=== PATIENT | male | born 2000 | race Caucasian/White ===

== ENCOUNTER 2024-08-19 10:12 | Outpatient (AMB) | payer OTHER, SELFPAY ==
--- NOTE | 2024-08-19 10:58 | MHC.OFFWIV ---
Intake Vital Signs 08/19/24 10:59 Height 6 ft 1 in Weight 203 lb BMI 26.8 BP 120/80 Blood Pressure Location Rt brachial Position Sitting Pulse 67 Pulse Source Pulse Oximeter Temp 98.2 F Temp Source Oral Pulse Oximetry (%) 98 Oxygen Delivery Method Room Air Intake Visit Reasons: [employer] Sore throat Intake Note: Patient here to be checked for strep throat as his girlfriend has it. pt denies any symptoms. Patient Tobacco Use Status: Never used Tobacco Allergies codeine Adverse Reaction (Intermediate, Verified 08/19/24 11:00) vomiting From GARAMYCIN Allergy (Unknown, Uncoded 08/19/24 11:00) HIVES Do you need a note to return to daycare/school/sports/work: No HPI [employer] Sore throat HPI Details This note is constructed using voice recognition software. While every effort has been made to ensure accuracy, costume director errors may have been included. The patient is a 24 year old male who presents to the clinic today with request to be tested for strep throat after exposure. He reports that his girlfriend has strep throat, and she is 4 days into illness, but just prior to them noticing that she had strep throat, they has been kissing. He denies any symptoms including sore throat, fever, chills, lymphadenopathy. He reports that he had strep throat quite a bit growing up, and has tested positive in the past as a child for it even without symptoms. [facility] Social History Patient Tobacco Use Status: Never used Tobacco Review of Systems Const All systems reviewed & are unremarkable except as noted in HPI and below Physical Exam Vital Signs: Last Vital Signs Temp 98.2 F 08/19/24 10:59 Pulse 67 08/19/24 10:59 BP 120/80 08/19/24 10:59 Pulse Ox 98 08/19/24 10:59 Oxygen Delivery Method Room Air 08/19/24 10:59 BMI result Body Mass Index 26.8 Const General: cooperative, healthy appearing, comfortable, no acute distress and well developed Orientation/consciousness: patient oriented x3 Limitations: no limitations HEENT Head: Yes normal to inspection Ears: hearing grossly normal bilaterally General nose exam: Normal external nose present Face and sinus: Yes normal facial exam Throat: Yes posterior oropharynx abnormal (erythema mild) Eyes General: appearance normal, both eyes and all related structures Neck Neck: Yes normal visual inspection and Yes full ROM Resp Effort & Inspection: normal respiratory effort and able to speak in complete sentences Auscultation: clear to auscultation bilaterally Cardio Rate: regular rate Rhythm: regular rhythm Heart sounds: normal S1 and S2 Skin General skin exam: no rashes or lesions noted Neuro General: patient oriented x3 Assessment & Plan Assessment & Plan (1) Exposure to strep throat: Code(s): Z20.818 - Contact with and (suspected) exposure to other bacterial communicable diseases Plan: Reassuring physical examination today. In office rapid strep negative. Throat culture obtained due to higher sensitivity and specificity of testing. Advised patient to follow up with new onset of symptoms this bite negative testing. Advised patient that should his culture come back positive we will be sending antibiotics to his requested pharmacy for treatment, advised patient that should he require antibiotics, he should take them until completed and not to stop if feeling better, unless the patient has side effects. Plan See above for full details and plan. Orders: Orders Throat Culture Today Z20.818 - Contact with and (suspected) exposure to other bacterial communicable diseases Coding Level of Care Code New Pt Level 3 (13473) Diagnoses Exposure to strep throat Z20.818
[2024-08-19 10:59] VITALS: BP 120/80; PULSE 67; TEMP 36.8; O2SAT 98; BMI 26.8
== END 2024-08-19 11:30 | disposition home or self-care (01) ==
PROVIDERS: PCP Pediatrics; Visit Provider Registered Nurse
DX: Z13.9 Encounter for screening, unspecified (principal); Z20.818 Contact with and (suspected) exposure to other bacterial communicable diseases

== ENCOUNTER 2024-08-19 10:12 | Outpatient (REF) | payer OTHER, SELFPAY | END 2024-08-19 10:13 | disposition home or self-care (01) | LOC: HO.LNP 10:12 | PROVIDERS: PCP Pediatrics; Visit Provider Registered Nurse | DX: Z20.818 Contact with and (suspected) exposure to other bacterial communicable diseases (principal) | CPT/HCPCS: 87070; 87880; 99202 ==

== ENCOUNTER 2024-08-24 10:32 | Outpatient (AMB) | payer OTHER, SELFPAY ==
[2024-08-24 11:06] VITALS: BP 138/70; PULSE 84; TEMP 36.9; O2SAT 98; BMI 26.8
--- NOTE | 2024-08-24 11:06 | MHC.OFFWIV ---
Intake Vital Signs 08/24/24 11:06 Height 6 ft 1 in Weight 203 lb 2 oz BMI 26.8 BP 138/70 Blood Pressure Location Lt brachial Position Sitting Pulse 84 Pulse Source Pulse Oximeter Temp 98.5 F Temp Source Oral Pulse Oximetry (%) 98 Oxygen Delivery Method Room Air Intake Visit Reasons: EP-body weakness, headaches Intake Note: Patient here for body weakness and headache that has been present for about 1 week. Patient Tobacco Use Status: Never used Tobacco Allergies codeine Adverse Reaction (Intermediate, Verified 08/24/24 11:15) vomiting From GARAMYCIN Allergy (Unknown, Uncoded 08/24/24 11:15) HIVES Do you need a note to return to daycare/school/sports/work: Yes HPI HPI Comments History of Present Illness Details This is a 24-year-old male with no stated past medical history presenting for evaluation of fatigue and headaches that he has had for the past 1 week. Patient does report chills last week but denies having any fevers. Patient was seen in the walk-in approximately 1 week ago for a sore throat which has since resolved. Patient has not taken any medication for treatment of his symptoms. Patient states that he works night at [employer] and typically has difficulty sleeping throughout the day at baseline. [facility] Social History Patient Tobacco Use Status: Never used Tobacco Review of Systems Const All systems reviewed & are unremarkable except as noted in HPI and below Denies chills, Reports fatigue and Denies fever(s) Eyes Reports no additional complaints ENT Reports no additional complaints, Denies otalgia, Denies nasal discharge, Denies sinus pressure and Denies sore throat Card Reports no additional complaints, Denies chest pain and Denies dyspnea Resp Reports no additional complaints, Denies cough and Denies dyspnea GI Reports no additional complaints Reports no additional complaints Musc Reports no additional complaints Skin/Breast Reports system reviewed and no additional complaints, except as documented Neuro Reports no additional complaints Psych Reports no additional complaints Endo Reports fatigue Aller/Immun Reports no additional complaints Physical Exam Vital Signs: Last Vital Signs Temp 98.5 F 08/24/24 11:06 Pulse 84 08/24/24 11:06 BP 138/70 08/24/24 11:06 Pulse Ox 98 08/24/24 11:06 Oxygen Delivery Method Room Air 08/24/24 11:06 BMI result Body Mass Index 26.8 Const General: cooperative, healthy appearing, comfortable, no acute distress, well developed, alert, awake and Physically active; No lethargic Nutritional Appearance: average body habitus and well nourished Orientation/consciousness: patient oriented x3 and No lethargic Limitations: no limitations HEENT Head: Yes normal to inspection and Yes normocephalic Ears: hearing grossly normal bilaterally, external ears normal, TM's normal bilaterally and EAC's normal General nose exam: Normal external nose present Face and sinus: Yes normal facial exam Mouth: Normal oral and palatal mucosa present Teeth and gingiva: dentition normal Throat: Yes posterior oropharynx normal Eyes General: appearance normal, both eyes and all related structures Neck Lymphatic: no lymphadenopathy noted Resp Effort & Inspection: normal respiratory effort, able to speak in complete sentences, no audible wheezes, no cough and no respiratory distress Auscultation: clear to auscultation bilaterally Cardio Rate: regular rate Rhythm: regular rhythm Skin General skin exam: no rashes or lesions noted Neuro General: patient oriented x3 Psych Appearance: grossly normal Mental Status: mental status grossly normal Insight: Good insight present (Psych) Judgement: Good judgement present (Psych) Assessment & Plan Assessment & Plan (1) Fatigue: Comment: Patient is well-appearing and in no distress. He is afebrile and has no specific physical complaints other than fatigue. Given his recent sore throat, respiratory viral panel will be obtained. Code(s): R53.83 - Other fatigue Qualifiers: Fatigue type: other Qualified Code(s): R53.83 - Other fatigue Plan: SARS panel is pending at this time. Patient will be provided with a work note x2 days. Coding Level of Care Code Est Pt Level 3 (73007) Diagnoses Other fatigue R53.83 Fatigue type: other Time Spent (min) 20
== END 2024-08-24 11:39 | disposition home or self-care (01) ==
PROVIDERS: PCP Pediatrics; Visit Provider Physician Assistant
DX: R53.83 Other fatigue (principal)

== ENCOUNTER 2024-08-24 10:32 | Outpatient (REF) | payer OTHER, SELFPAY ==
[2024-08-24 16:15] LABS: Influenza A PCR NEGATIVE (Negative); Influenza B PCR NEGATIVE (Negative); Resp Syncy Virus RNA Qual PCR NEGATIVE (Negative); SARS COV2 PCR INHOUSE NEGATIVE (Negative)
== END 2024-08-24 10:33 | disposition home or self-care (01) ==
LOC: HO.LNP 10:32
PROVIDERS: PCP Pediatrics; Visit Provider Physician Assistant
DX: R53.83 Other fatigue (principal); Z11.52 Encounter for screening for COVID-19
CPT/HCPCS: 0241U; 99212